=== PATIENT | female | born 1950 | race Caucasian/White ===

== ENCOUNTER → 2024-01-18 07:32 | Outpatient (REF) | payer OTHER, SELFPAY | LOC: DHVS 07:32 | PROVIDERS: ATTENDING PHYSICIAN Surgery Vascular Surgery | DX: I73.9 Peripheral vascular disease, unspecified (principal) | CPT/HCPCS: 93922; 93925; 93978 ==

== ENCOUNTER → 2025-01-16 07:49 | Outpatient (REF) | payer OTHER, SELFPAY | LOC: DHVS 07:49 | PROVIDERS: ATTENDING PHYSICIAN Surgery Vascular Surgery; FAMILY PHYSICIAN Family Medicine | DX: I73.9 Peripheral vascular disease, unspecified (principal) | CPT/HCPCS: 93922 ==